=== PATIENT | female | born 1995 | race African-American/Black ===

== ENCOUNTER 2018-06-26 19:49 | Emergency (ER) | payer SELFPAY ==
[2018-06-26] MEDS ORDERED: Acetaminophen TAB* 325 MG PO ONE (20:07)
--- NOTE | 2018-06-26 20:09 | ED ---
Lower Extremity - HPI Summary HPI Summary: A 23 y/o F brought in by ambulance presents to ED with c/o suddent onset L knee pain onset shortly [employer]. Pt wascarrying her groceries and slipped on the ice, falling onto her knee. She denies head trauma and UE pain. She was able to ambulate after her fall. She walked up the stairs and around her apartment, but once she down, she had difficulty getting back up because it was as though her knee locked up. She is an [employer] student. - History of Current Complaint Chief Complaint: EDExtremityLower Stated Complaint: LT KNEE PAIN Time Seen by Provider: 06/26/18 20:02 Hx Obtained From: Patient Mechanism Of Injury: Fall From A Standing Position Onset of Pain: Prior to Arrival Onset/Duration: Still Present Severity Currently: Severe Pain Intensity: 9 Pain Scale Used: 0-10 Numeric Timing: Constant Location: Is Discrete @ - L knee Associated Signs And Symptoms: Negative: Other - neg: head trauma, UE pain - Allergies/Home Medications Allergies/Adverse Reactions: Allergies Allergy/AdvReac Type Severity Reaction Status Date / Time No Known Allergies Allergy Verified 02/17/16 19:34 PMH/Surg Hx/FS Hx/Imm Hx Previously Healthy: Yes Endocrine/Hematology History: Denies: Hx Diabetes Opthamlomology History: Denies: Hx Legally Blind EENT History: Denies: Hx Deafness Psychiatric History: Reports: Hx Depression, Hx Suicide Attempt Denies: Hx Eating Disorder, Hx of Violent Episodes Against Others Infectious Disease History: No Infectious Disease History: Denies: Traveled Outside the [place] in Last 30 Days - Family History Known Family History: Positive: Hypertension, Diabetes - Social History Occupation: Student Lives: With Family Alcohol Use: None Hx Substance Use: No Substance Use Type: Reports: None Hx Tobacco Use: No Smoking Status (MU): Never Smoked Tobacco Review of Systems Negative: Fever Musculoskeletal: Other - pos: L knee pain Negative: Other - neg: head trauma, UE pain All Other Systems Reviewed And Are Negative: Yes Physical Exam - Summary Physical Exam Summary: Appearance: Well-appearing, Well-nourished, lying in bed comfortable Skin: Warm, dry, no obvious rash Eyes: sclera anicteric, no conjunctival pallor ENT: mucous membranes moist Neck: deferred Respiratory: No signs of respiratory distress Cardiovascular: Appears well perfused, pulses are nml Abdomen: deferred Musculoskeletal: L knee is tender over the patella; there is no gross instability but patient's pain and apprehension limit the exam; no obvious deformity, no obvious swelling or effusion. Neurological: Awake and alert, mentation is normal, speech is fluent and appropriate Psychiatric: affect is normal, does not appear anxious or depressed Triage Information Reviewed: Yes Vital Signs On Initial Exam: Initial Vitals Temp Pulse Resp BP Pulse Ox 99 F 76 18 133/75 100 06/26/18 19:55 06/26/18 19:55 06/26/18 19:55 06/26/18 19:55 06/26/18 19:55 Vital Signs Reviewed: Yes Diagnostics - Vital Signs Vital Signs Temp Pulse Resp BP Pulse Ox 06/26/18 19:55 99 F 76 18 133/75 100 - Laboratory Lab Statement: Any lab studies that have been ordered have been reviewed, and results considered in the medical decision making process. - Radiology L KNEE Radiology Interpretation Completed By: ED Physician Summary of Radiographic Findings: Negative for fracture. Re-Evaluation - Re-Evaluation 1 Re-Evaluation Time: 21:15 Change: Unchanged Comment: Discussing Knee XR results with pt and plans for D/C and need to f/u with ortho. Lower Extremity Course/Dx - Course Course Of Treatment: Pt is a 23 y/o F brought in by ambulance c/o L knee pain onset shortly [employer] after a mechanical fall. Pt was carrying her groceries and slipped on the ice, falling onto her L knee. She denies head trauma and UE pain. She was able to ambulate after her fall, but once she sat down, she had difficulty getting back up. She is an [employer] student. Limited PE is positive for L knee tenderness over the patella; there is no gross instability but patient's pain and apprehension limit the exam; no obvious deformity, no obvious swelling or effusion. L Knee XR is negative for fracture. Will discharge patient home with crutches and to f/u with ortho. - Diagnoses Provider Diagnoses: Knee sprain Discharge - Sign-Out/Discharge Documenting (check all that apply): Patient Departure - D/C - Discharge Plan Condition: Good Disposition: HOME Patient Education Materials: Knee Sprain (DC), Crutch Instructions (ED) Referrals: Kin Mulligan MD [Medical Doctor] - As Soon As Possible - Billing Disposition and Condition Condition: GOOD Disposition: Home - Attestation Statements Document Initiated by Miguelangel: Yes Documenting Scribe: Stormy Velasquez Provider For Whom Miguelangel is Documenting (Include Credential): Dr. Torres Zaman MD Scribe Attestation: IStormy, scribed for Dr. Torres Zaman MD on 06/27/18 at 0515. Scribe Documentation Reviewed: Yes Provider Attestation: The documentation as recorded by the miguelangel, Stormy Velasquez accurately reflects the service I personally performed and the decisions made by me, Dr. Torres Zaman MD Status of Scribe Document: Viewed
[2018-06-26 21:43] VITALS: BP 136/79
== END 2018-06-26 21:41 | disposition home or self-care (01) ==
LOC: ED 19:49
DX: S83.92XA Sprain of unspecified site of left knee, initial encounter (principal); M25.562 Pain in left knee; W00.0XXA Fall on same level due to ice and snow, initial encounter; Y92.9 Unspecified place or not applicable
CPT/HCPCS: 99282; A9270-GY